=== PATIENT | male | born 1980 | race African-American/Black ===

== ENCOUNTER 2019-02-27 23:59 | Emergency (ER) | payer MEDICARE ==
[~2019-02-27] VITALS: Ht 175.3 cm; Wt 112.0 kg
[2019-02-28 00:28] VITALS: BP 141/90
== END 2019-02-28 02:47 | disposition left against medical advice (07) ==
LOC: ER 23:59
DX: Z53.21 Procedure and treatment not carried out due to patient leaving prior to being seen by health care provider (principal); I48.91 Unspecified atrial fibrillation; I50.9 Heart failure, unspecified; E11.9 Type 2 diabetes mellitus without complications; I10 Essential (primary) hypertension